=== PATIENT | female | born 1965 | race Caucasian/White ===

== ENCOUNTER 2017-07-16 10:31 | Outpatient (CLI) | payer OTHER ==
[2017-07-16 12:19] LABS: Hemoglobin 13.7 g/dL (12.0-16.0); Mean Corpuscular Hemoglobin 28.8 pg (27.0-31.0); Mean Corpuscular Volume 90.1 fl (81.0-99.0); Mean Platelet Volume 6.7 fL (7.4-10.4); Platelet Count 296 thou/uL (130-400); RBC Distribution Width 12.9 % (11.5-14.5); Red Blood Cell (RBC) Count 4.76 mill/uL (4.20-5.40); White Blood Cell (WBC) Count 7.5 thou/uL (4.8-10.8)
== END 2017-07-16 10:32 | disposition home or self-care (01) ==
LOC: LABBT 10:31
PROVIDERS: ATTEND Student in an Organized Health Care Education/Training Program
DX: Z01.812 Encounter for preprocedural laboratory examination (principal); D25.9 Leiomyoma of uterus, unspecified; N92.0 Excessive and frequent menstruation with regular cycle; N92.6 Irregular menstruation, unspecified
CPT/HCPCS: 85027; 86850; 86900; 86901

== ENCOUNTER 2017-07-19 05:54 | Observation (INO) | payer OTHER ==
[2017-07-16 10:56] VITALS: BMI 38.6
--- NOTE | 2017-07-18 16:35 | HP ---
DATE OF OPERATION: 07/19/2017 CHIEF COMPLAINT: Pelvic pain and excessive menstruation. HISTORY OF PRESENT ILLNESS: This is a 51-year-old G4, P2, A2 with a known fibroid uterus and ovary o rhonda the past year has developed irregular prolonged heavy menses. Current LMP is March; however, reports menses heavy for up to 2 weeks long, increased pelvic pressure irregularly and urinary freque ncy. Endometrial biopsy was negative; however, did not contain any intact endometrium. Pap HPV 2 ye ars ago was negative. No history of abnormal paps. Ultrasound shows uterus 13 x 7 fundal fibroid me asuring 7.15 x 6.92. Ovaries were not seen. CURRENT MEDICATIONS: Zyrtec 10 mg p.o. daily, cyclobenzaprine 10 mg p.o. p.r.n. muscle spasm, Nalfon 400 mg p.o. b.i.d., Oracea 40 mg p.o. daily, Restasis ophthalmic, and Topamax 50 mg p.o. daily. ALLERGIES: No known drug allergies. PAST MEDICAL HISTORY: Degenerative disk disease, headache, allergic rhinitis. PAST SURGICAL HISTORY: Two benign breast lumps removed and cholecystectomy. OBSTETRIC HISTORY: x2. GYNECOLOGIC HISTORY: No abnormal Paps, no STDs. SOCIAL HISTORY: Negative x3. FAMILY HISTORY: Hypertension, heart disease, hyperlipidemia, and diabetes. REVIEW OF SYSTEMS: Negative except as noted in HPI. PHYSICAL EXAMINATION: VITAL SIGNS: Blood pressure 119/78, pulse is 89, weight is 238 pounds, BMI is 39.6, respirations 18. GENERAL: No acute distress. CARDIAC: Regular rate and rhythm. LUNGS: Clear to auscultation bilaterally. ABDOMEN: Soft, nontender, obese. EXTREMITIES: No edema, cyanosis or clubbing. PELVIC: Deferred to the OR. ASSESSMENT AND PLAN: A 51-year-old P2 with fibroid uterus and abnormal uterine bleeding and pelvic p ain, desiring definitive management. Has counseled the patient on robotic-assisted laparoscopic hyst erectomy and bilateral salpingectomy. Patient desires ovarian retention as long as normal appearing. Discussed risks of surgery to include bleeding, transfusion, infection, damage to surrounding struc tures including bowel, bladder, ureter, blood vessels and nerves, conversion to open procedure. The patient understands and wishes to proceed. All questions were answered. Patient will call me in 2 w eeks postoperative time.
[2017-07-19] MEDS ORDERED: Bupivacaine HCl 0.5%/Epinephrine 1:200,000/PF 30 ml Vial ONE (06:41)
[2017-07-19] MEDS ORDERED: Ondansetron HCl/PF 4 MG/2 ML Vial ONE ×3 (06:47→09:29)
[2017-07-19] MEDS ORDERED: Famotidine/PF 20 mg/2ml Vial ONE (06:47)
[2017-07-19] MEDS ORDERED: Fentanyl 250 MCG/5 ML VIAL ONE (06:47)
[2017-07-19] MEDS ORDERED: HYDROmorphone 0.5 MG/0.5 ML SYRINGE ONE (06:47)
[2017-07-19] MEDS ORDERED: Scopolamine 1.5 mg/72 hour Patch ONE (06:48)
[2017-07-19] MEDS ORDERED: CEFAZOLIN/Water 2 GM/20 ML SYRINGE ONE (06:48)
[2017-07-19] MEDS ORDERED: Albuterol Sulfate HFA (OR ONLY) ONE (07:03)
[2017-07-19] MEDS ORDERED: Midazolam HCl 2 mg/2 ml Vial ONE (07:13)
[2017-07-19] MEDS ORDERED: PROVENTIL INHALER 6.7 G (200 INHALATIONS) ONE (09:29)
[2017-07-19] MEDS ORDERED: Dexamethasone 20 MG/5 ML VIAL ONE (09:29)
[2017-07-19] MEDS ORDERED: PROPOFOL 200 MG/20 ML VIAL ONE (09:29)
[2017-07-19] MEDS ORDERED: Glycopyrrolate 0.2 MG/ML 5 ML SYRINGE ONE (09:29)
[2017-07-19] MEDS ORDERED: Ketorolac Tromethamine 30 MG/ML VIAL ONE (09:29)
[2017-07-19] MEDS ORDERED: Lidocaine 1% PF 5 ML VIAL ONE (09:29)
[2017-07-19] MEDS ORDERED: Promethazine HCl 25 MG/ML VIAL SLOW IVP PRN (09:46)
[2017-07-19] MEDS ORDERED: Meperidine HCl/PF 25 MG/ML VIAL SLOW IVP PRN (09:46)
[2017-07-19] MEDS ORDERED: Ondansetron HCl/PF 4 MG/2 ML Vial IVP PRN ×2 (09:46→10:18)
[2017-07-19] MEDS ORDERED: Promethazine HCl 25 MG/ML VIAL IM PRN ×2 (09:46→10:18)
[2017-07-19] MEDS ORDERED: HYDROmorphone 2 MG/ML VIAL SLOW IVP PRN (09:46)
[2017-07-19] MEDS ORDERED: SUGAMMADEX SODIUM 200 MG/2 ML VIAL ONE (10:01)
[2017-07-19] MEDS ORDERED: diphenhydrAMINE 25 MG CAP PO PRN (10:18)
[2017-07-19] MEDS ORDERED: Bisacodyl 10 MG SUPP PR PRN (10:18)
[2017-07-19] MEDS ORDERED: HYDROcodone/Acetaminophen 5/325 mg Tablet PO PRN ×2 (10:18)
[2017-07-19] MEDS ORDERED: Morphine 4 MG/ML Carpuject SLOW IVP PRN (10:18)
[2017-07-19] MEDS ORDERED: Zolpidem Tartrate 5 MG TAB PO PRN (10:18)
[2017-07-19] MEDS ORDERED: Acetaminophen 325 MG TAB PO PRN (10:18)
[2017-07-19] MEDS ORDERED: Simethicone Chewable 80 MG TAB PO PRN (10:18)
[2017-07-19] MEDS ORDERED: Promethazine HCl 25 MG/ML VIAL ONE (11:19)
--- NOTE | 2017-07-19 11:41 | OP ---
DATE OF OPERATION: 07/19/2017 PREOPERATIVE DIAGNOSES: 1. Uterine fibroids. 2. Menometrorrhagia. 3. Pelvic pain. POSTOPERATIVE DIAGNOSES: 1. Uterine fibroids. 2. Menometrorrhagia. 3. Pelvic pain. PROCEDURE: Robotic assisted total laparoscopic hysterectomy and bilateral salpingectomy with extraco rporeal morcellation. ANESTHESIA: General endotracheal. ATTENDING SURGEON: Lizett Barrientos M.D. INSEAMER: Osvaldo Barillas M.D. ESTIMATED BLOOD LOSS: 100 mL. INTRAVENOUS FLUIDS: 1700 mL crystalloid. URINE OUTPUT: 300 mL of clear urine. COMPLICATIONS: None. PATHOLOGY: Uterus, cervix, bilateral fallopian tubes. DRAINS: Teran catheter. FINDINGS: A 16-week multifibroid uterus sounded to 8 cm, normal appearing fallopian tubes and ovarie s. There were some adhesions on the left adnexa to the epiploic and 2 scattered endometriotic implan ts on the pelvic sidewalls bilaterally that were cauterized. OPERATIVE TECHNIQUE: The patient was taken to the operating room where general anesthesia was obtain ed without difficulty. The patient was prepped and draped in a sterile fashion in the dorsal lithoto my position. A Teran catheter was placed in the bladder. A speculum was placed in the vagina. Ante rior lip of the cervix was grasped with a single tooth tenaculum and the uterus then sounded to 8 cm. The NIKA manipulator was assembled with a 4 cm ring and an 8 cm tip and the cervix was progressivel y dilated. The manipulator tip was placed to the uterine fundus. The balloon was inflated. Instrum ents were removed out the vagina and the colpotomizer ring was advanced to fit snugly around the cerv ix and locked into place. Legs were placed in low lithotomy. Attention was turned to the abdomen, 0 .5% Marcaine with epinephrine was infiltrated into the umbilicus, a 12 mm skin incision was made and the Veress needle was passed into the abdomen noting an opening pressure of 6 mmHg and pneumoperitone um was obtained without difficulty. The Veress needle was removed and the 12 mm trocar was passed in to the abdomen confirming placement with the robotic camera. The steep Trendelenburg was obtained. The camera port was then extended to accommodate the mini Gelpoint to approximately 2.5 cm including the fascial incision. The port was then removed and the mini Johnathon was placed into the incision ens uring the Johnathon was free of any omentum or bowel structures and this was cinched down. The 12 mm ca danial and 8 mm engineer assistant port were placed through the mini Gelpoint and this was affixed to the top [facility] subsequently prior to this a large elects applied medical bag was placed into the abdomen as the u terus would be morcellated in a contained manner. The right and left lower quadrant 8 mm robotic tro cars were placed under direct visualization after infiltrating with 0.5% Marcaine with epinephrine. The robot was then docked. The right robotic arm contained a monopolar scissors, left robotic arm co ntained a fenestrated bipolar. The right fallopian tube was grasped and elevated and a window was ma de in the mesosalpinx and the vessels were cauterized with the fenestrated and a tissue was transecte d and the fallopian tube was clamped across, cauterized, transected and removed out of the abdomen. The utero-ovarian on the right was cauterized x2 and transected and taken down to the round ligament that was cauterized in the midportion and transected with the scissors. The posterior leaf of the br oad ligament was dropped down to the level of the uterosacral and the vessel on the right side were s keletonized bluntly dissecting with the fenestrated bipolar and incising transparent tissue with the scissors. The vesicouterine peritoneum was incised across the lower uterine segment, ensuring a maco r window and hazy bladder fibers were transected with the scissors and the bladder was dissected down distally. Attention was turned to the left side of the uterus where the fallopian tube was noted to be adherent to some epiploica and a clear window was identified and transected with the scissors on the pelvic sidewall anterior to the infundibulopelvic ligament and these adhesions were taken down ea sily as there was a clear window all the way down to the adnexa. A window was made in the mesosalpin x in the mid portion and the vessels in the mesosalpinx were cauterized with the fenestrated and from medial to lateral to the fallopian tube was dissected off of the ovary using the fenestrated for hem ostasis and the fallopian tube was then disconnected and removed out of the abdomen. The uteroovaria n on the left side was cauterized x2 and transected and taken down to the level of the round ligament that was cauterized and transected. The posterior leaf of the broad ligament was examined. The ure ter was noted and felt to possibly be running high. However, the identification was slightly difficu lt. Therefore, this area was avoided and the uterus was hugged medially well away from the tubular s tructure that was not noted to peristalse however, the ureter was not able to be identified clearly a nd this did lead to some slight oozing from the lateral portion of the uterus. This allowed the chato toneum and the posterior leaf to drop down adequately to drop the ureter away. The anterior leaf als o was taken down to the level of the bladder flap and the vessels were carefully skeletonized on this side with the scissors and the bladder was then backfilled and no limitations of the bladder mucosa was noted and the pubocervical fascia was scored on, pushing in on the ring and the bladder was disse cted down below the level of the colpotomizer ring. Once the vessels had adequately been skeletonize d, anterior colpotomy was performed and carried around to the uterine pedicle bilaterally. The poste rior colpotomy was also performed and by pushing in on the colpotomizer ring this allowed the ureter to drop away even more. The fenestrated was then slipped underneath the lateral apices to cauterize the vessels and these were subsequently transected and the uterus was completely disconnected at that time. The manipulator was removed out of the vagina and the uterus was placed in the upper abdomen. Hemostasis was achieved of the vaginal cuff with the fenestrated. The scissors were traded out for the needle long haul truck driver and irrigation was performed of the vaginal cuff. The vaginal cuff was then close d with a 2-0 barbed suture in a running fashion ensuring vaginal mucosa in each anterior and posterio r bite and incorporation of posterior peritoneum with excellent reapproximation and this was ran back for several throws after complete closure and the needle was removed out of the abdomen. Irrigation was performed of the cuff. Low pressure check was performed. Hemostasis was noted to be excellent and the bag was then brought down from the upper abdomen into the lower pelvis and the uterus was luis ole on top of the bag and the sutures that were holding the bag together were cut and this allowed th e bag to deploy opened and the uterus easily fell inside the bag. The string on the edge of the bag was then placed through a loop we had previously made to cinch the bag in and hold the specimen in th ere and this was then brought out of the mini Gelpoint and affixed to the anterior abdominal wall. T he robot was then undocked and all instruments removed out of the abdomen. The bag was brought up th rough the mini Gelpoint incision. The Johnathon was removed and placed on the anterior of the bag and t he cervix was then grasped with a Sarah clamp and morcellation was performed in a contained manner wi th no free spillage of cellular material using a C-incision technique with an 11 blade at the abdomin al wall, ensuring that the abdominal wall was tented up on during the entire procedure. It took appr oximately 15 minutes and the Johnathon and the bag were then removed out of the abdomen. Irrigation was performed of the umbilical incision. The fascia of the umbilical incision was identified and then c losed and [id number] with 0 Vicryl and the skin of the incisions were closed with 4-0 Monocryl in a subcuticular fashion. Dermabond was applied. The vaginal cuff was checked and noted to be hemo static from the vaginal approach and all instruments were removed out the vagina. The patient tolera tejas procedure well. Sponge and needle counts correct x2. The patient was taken to recovery in stabl e condition.
[2017-07-19] MEDS ORDERED: Ketorolac Tromethamine 30 MG/ML VIAL IVP SCH (12:00)
[2017-07-19] MEDS: Lactated Ringer's 1,000 ML IV SCH ×2 (12:11→18:05)
[2017-07-19] MEDS ORDERED: FLU VACC QS2017-18 36 mo. & older 0.5 ML SYRINGE IM ONE (13:00)
[2017-07-19] MEDS: Ketorolac Tromethamine 30 MG/ML VIAL IVP SCH ×2 (14:24→21:35)
[2017-07-19] MEDS ORDERED: Fioricet 325/50/40 mg Tablet PO PRN (18:37)
[2017-07-19] MEDS ORDERED: TREXIMET PO PRN (19:08)
[2017-07-19] MEDS ORDERED: FIORICET PO PRN (19:08)
[2017-07-20] MEDS: Lactated Ringer's 1,000 ML IV SCH (02:48)
[2017-07-20] MEDS: Ketorolac Tromethamine 30 MG/ML VIAL IVP SCH (02:49)
[2017-07-20 06:03] LABS: Hemoglobin 11.5 g/dL (12.0-16.0); Mean Corpuscular HGB CONC 31.5 g/dL (32.0-36.0); Mean Corpuscular Hemoglobin 28.3 pg (27.0-31.0); Mean Corpuscular Volume 89.7 fl (81.0-99.0); Mean Platelet Volume 6.9 fL (7.4-10.4); Platelet Count 260 thou/uL (130-400); Red Blood Cell (RBC) Count 4.05 mill/uL (4.20-5.40); White Blood Cell (WBC) Count 12.1 thou/uL (4.8-10.8)
[2017-07-20] MEDS ORDERED: Acetaminophen/Codeine 30-300mg Tablet PO PRN ×2 (07:50)
[2017-07-20] MEDS ORDERED: Ibuprofen 800 MG TAB PO SCH (08:00)
[2017-07-20 08:01] VITALS: BP 114/57; TEMP 98.2
--- NOTE | 2017-07-21 13:59 | DIS ---
DATE OF ADMISSION: 07/19/2017 DATE OF DISCHARGE: 07/20/2017 ADMISSION DIAGNOSES: 1. Pelvic pain. 2. Menorrhagia. DISCHARGE DIAGNOSES: Status post robotic-assisted total laparoscopic hysterectomy and bilateral salp ingectomy. DISCHARGE CONDITION: Stable. CONSULTATIONS: None. PROCEDURES: As listed on discharge diagnosis. HISTORY AND PHYSICAL: Please see previously dictated H&P. HOSPITAL COURSE: This is a 51-year-old presented to day stay on the to undergo scheduled surger y as listed above. She had an uncomplicated surgery with an estimated blood loss of 100 mL. Postope ratively, the patient was transferred to the floor, pain was initially managed with IV Toradol and p. r.n. morphine. She transitioned to p.o. meds when she tolerated a regular diet evening on postoperat yoko day 0. She also had her catheter discontinued and was able to void without difficulty and empty completely. Her postoperative hemoglobin on postoperative day #1 was 11.5, hematocrit 36.3. Her vit al signs remained within normal limits. Her exam was benign. Incisions were clean, dry and intact a nd she was dispositioned for home after meeting all her postop milestones on postop day 1 and given p rescriptions for [place]ner and ibuprofen and instructions to follow up in 2 weeks' time. Her final patho logy was pending at the time of discharge.
== END 2017-07-20 11:05 | disposition home or self-care (01) ==
LOC: SDC 05:54 → 3SE 10:18
PROVIDERS: ADMIT Student in an Organized Health Care Education/Training Program; ATTEND Student in an Organized Health Care Education/Training Program
PROC: 0UT94ZZ Resection of Uterus, Percutaneous Endoscopic Approach (ICD-10-PCS; principal; 2017-07-19)
PROC: 0UT24ZZ Resection of Bilateral Ovaries, Percutaneous Endoscopic Approach (ICD-10-PCS; 2017-07-19)
PROC: 0UT74ZZ Resection of Bilateral Fallopian Tubes, Percutaneous Endoscopic Approach (ICD-10-PCS; 2017-07-19)
DX: N80.0 Endometriosis of uterus (principal); D25.1 Intramural leiomyoma of uterus; J30.9 Allergic rhinitis, unspecified; G43.909 Migraine, unspecified, not intractable, without status migrainosus; E66.9 Obesity, unspecified; Z68.38 Body mass index [BMI] 38.0-38.9, adult; Z79.2 Long term (current) use of antibiotics; Z79.899 Other long term (current) drug therapy; Z90.49 Acquired absence of other specified parts of digestive tract; Z98.890 Other specified postprocedural states; Z87.891 Personal history of nicotine dependence
CPT/HCPCS: 85027; 88307; 96361; 96374; 96375; 96376; G0378; J0131; J0670; J1100; J1170; J1885; J2001; J2250; J2405; J2550; J2704; J3010; Q9968; S0028

== ENCOUNTER 2021-12-10 08:12 | Outpatient (CLI) | payer BC | END 2021-12-10 08:13 | disposition home or self-care (01) | LOC: BICMAMMO 08:12 | PROVIDERS: ATTEND Obstetrics & Gynecology | DX: N64.4 Mastodynia (principal) | CPT/HCPCS: 77066; G0279 ==